=== PATIENT | female | born 1970 | race Hispanic/Latino ===

== ENCOUNTER 2016-05-09 09:09 | Emergency (ER) | payer MEDICAID ==
[2016-05-09] MEDS ORDERED: ZOFRAN IV ONE ×2 (09:44→10:48)
[2016-05-09 10:07] LABS: Basophils % (Auto) 0.4 % (0.0-1.8); Eosinophils % (Auto) 0.2 % (0.0-4.3); Hematocrit 50.4 % (30.3-42.9); Mean Corpuscular HGB Conc 34 % (30-34); Mean Corpuscular Hemoglobin 30 pg (28-32); Mean Corpuscular Volume 90 fl (79-97); Platelet Count 242 K/mm3 (140-440); Red Blood Count 5.58 M/mm3 (3.65-5.03); Red Cell Distribution Width 13.1 % (13.2-15.2); White Blood Count 9.5 K/mm3 (4.5-11.0)
[2016-05-09 10:19] LABS: Anion Gap 18 mmol/L; BUN/Creatinine Ratio 34.28; Blood Urea Nitrogen 24 mg/dL (7-17); Calcium 9.6 mg/dL (8.4-10.2); Carbon Dioxide 27 mmol/L (22-30); Chloride 98.4 mmol/L (98-107); Glucose 128 mg/dL (65-100); Potassium 3.5 mmol/L (3.6-5.0); Sodium 140 mmol/L (137-145)
[2016-05-09] MEDS ORDERED: NACL 0.9% 1000 ML 1,000 ML IV ONE (10:48)
[2016-05-09] MEDS ORDERED: MORPHINE IV ONE (10:48)
[2016-05-09 11:00] LABS: Bilirubin,Urine NEG (Negative); Blood,Urine NEG (Negative); Ketones,Urine 20 mg/dL (Negative); Leukocyte Esterase,Urine NEG (Negative); Mucus,Urine 3+ /HPF; Nitrite,Urine NEG (Negative)
--- NOTE | 2016-05-09 11:03 | Emergency Department Report ---
ED General Adult HPI - General Chief complaint: Syncope Stated complaint: SYNCOPE Time Seen by Provider: 05/09/16 10:16 Source: patient, EMS Mode of arrival: Stretcher Limitations: No Limitations - History of Present Illness Initial comments: 45-year-old female presents to the emergency department via EMS for evaluation of syncope. Patient states that she has been having nausea and vomiting for the past 3 days. She states she has not eaten anything in that time. There's been no diarrhea. She reports generalized weakness and myalgias. There has been no fever. Patient states she was vomiting this morning and stood up too quickly. She then passed out. At this time, patient is only complaining of myalgias and nausea. There are no other complaints. -: Gradual, days(s) (3) Consistency: constant Improves with: none Worsens with: none Associated Symptoms: nausea/vomiting, syncope Treatments Prior to Arrival: none - Related Data Home Medications Medication Instructions Recorded Confirmed Last Taken Citalopram 0 mg 05/09/16 3 Days Ago Previous Rx's Medication Instructions Recorded Last Taken Type HYDROcodone/APAP 5-325 [[place] 1 each PO Q6HR PRN #20 tablet 05/09/16 Unknown Rx 5/325] Metoclopramide [Reglan] 10 mg PO TID PRN #20 tab 05/09/16 Unknown Rx Allergies Allergy/AdvReac Type Severity Reaction Status Date / Time No Known Allergies Allergy Unverified 05/09/16 09:30 ED Review of Systems ROS: Stated complaint: SYNCOPE Other details as noted in HPI Comment: All other systems reviewed and negative Constitutional: weakness Cardiovascular: syncope Gastrointestinal: nausea, vomiting Musculoskeletal: myalgia ED Past Medical Hx - Past Medical History Previous Medical History?: Yes Hx Psychiatric Treatment: Yes (Anxiety) - Surgical History Past Surgical History?: Yes Hx Breast Surgery: Yes (Augmentation bilateral in 2003) - Family History Family history: no significant - Social History Smoking Status: Former Smoker Substance Use Type: None - Medications Home Medications: Home Medications Medication Instructions Recorded Confirmed Last Taken Type Citalopram 0 mg 05/09/16 3 Days Ago History HYDROcodone/APAP 5-325 [[place] 1 each PO Q6HR PRN #20 tablet 05/09/16 Unknown Rx 5/325] Metoclopramide [Reglan] 10 mg PO TID PRN #20 tab 05/09/16 Unknown Rx ED Physical Exam - General Limitations: No Limitations General appearance: alert, in no apparent distress - Head Head exam: Present: atraumatic, normocephalic - Eye Eye exam: Present: normal appearance, PERRL, EOMI - ENT ENT exam: Present: normal exam, normal orophraynx, mucous membranes moist - Neck Neck exam: Present: normal inspection, full ROM. Absent: tenderness - Respiratory Respiratory exam: Present: normal lung sounds bilaterally. Absent: respiratory distress - Cardiovascular Cardiovascular Exam: Present: regular rate, normal rhythm, normal heart sounds - GI/Abdominal GI/Abdominal exam: Present: soft, normal bowel sounds. Absent: distended, tenderness - Extremities Exam Extremities exam: Present: normal inspection, full ROM. Absent: tenderness - Back Exam Back exam: Present: normal inspection, full ROM. Absent: tenderness - Neurological Exam Neurological exam: Present: alert, oriented X3. Absent: motor sensory deficit - Skin Skin exam: Present: warm, dry, intact ED Course Vital Signs 05/09/16 05/09/16 05/09/16 09:10 09:15 09:31 Temperature 98.6 F Pulse Rate 63 53 L 77 Respiratory 25 H 14 17 Rate Blood Pressure 112/78 114/72 Blood Pressure [Right] O2 Sat by Pulse 99 100 99 Oximetry 05/09/16 05/09/16 05/09/16 09:45 10:01 10:15 Temperature Pulse Rate 74 53 L 57 L Respiratory 14 14 12 Rate Blood Pressure 110/74 127/108 118/92 Blood Pressure [Right] O2 Sat by Pulse 100 97 100 Oximetry 05/09/16 05/09/16 05/09/16 10:31 10:45 11:00 Temperature Pulse Rate 63 55 L 56 L Respiratory 12 16 15 Rate Blood Pressure 119/75 128/74 131/74 Blood Pressure [Right] O2 Sat by Pulse 100 100 100 Oximetry 05/09/16 05/09/16 05/09/16 11:09 11:15 11:30 Temperature Pulse Rate 52 L 51 L Respiratory 16 11 L 13 Rate Blood Pressure 131/74 144/80 Blood Pressure [Right] O2 Sat by Pulse 100 100 Oximetry 05/09/16 05/09/16 05/09/16 11:39 11:45 12:01 Temperature Pulse Rate 54 L 50 L Respiratory 16 24 11 L Rate Blood Pressure 144/80 137/73 Blood Pressure [Right] O2 Sat by Pulse 100 98 Oximetry 05/09/16 05/09/16 05/09/16 12:03 12:15 12:30 Temperature 98.3 F Pulse Rate 55 L 53 L 56 L Respiratory 16 13 11 L Rate Blood Pressure 137/73 126/62 Blood Pressure 122/54 [Right] O2 Sat by Pulse 99 100 100 Oximetry 05/09/16 05/09/16 05/09/16 12:45 13:00 13:15 Temperature Pulse Rate 54 L 56 L 49 L Respiratory 12 10 L 23 Rate Blood Pressure 126/62 149/79 139/74 Blood Pressure [Right] O2 Sat by Pulse 98 100 98 Oximetry 05/09/16 05/09/16 05/09/16 13:30 13:45 14:00 Temperature Pulse Rate 50 L 50 L 49 L Respiratory 18 18 20 Rate Blood Pressure 142/72 135/71 138/73 Blood Pressure [Right] O2 Sat by Pulse 98 99 98 Oximetry ED Medical Decision Making - Lab Data Result diagrams: 05/09/16 09:50 05/09/16 09:50 - EKG Data -: EKG Interpreted by Sd EKG shows normal: sinus rhythm, axis, intervals, QRS complexes, ST-T waves Rate: bradycardia - EKG Data When compared to previous EKG there are: previous EKG unavailable Interpretation: normal EKG - Medical Decision Making Lab results reviewed and discussed with the patient. Patient reports feeling better with medication. Patient will be discharged home at this time with follow-up with her primary care physician. - Differential Diagnosis vasovagal syncope, gastritis, dehydration, electrolyte abnormality Critical care attestation.: If time is entered above; I have spent that time in minutes in the direct care of this critically ill patient, excluding procedure time. ED Disposition Clinical Impression: Nausea and vomiting in adult Disposition: DISCHARGED TO HOME OR SELFCARE Is pt being admited?: No Condition: Stable Instructions: Acute Nausea and Vomiting (ED) Prescriptions: HYDROcodone/APAP 5-325 [[place] 5/325] 1 each PO Q6HR PRN #20 tablet PRN Reason: Pain Metoclopramide [Reglan] 10 mg PO TID PRN #20 tab PRN Reason: Nausea Referrals: PRIMARY CARE, [Primary Care Provider] - 3-5 Days Time of Disposition: 14:32
[2016-05-09] MEDS ORDERED: BENTYL IM ONE (12:39)
[2016-05-09] MEDS ORDERED: REGLAN IV ONE (12:39)
[2016-05-09 14:48] VITALS: BP 122/78
== END 2016-05-09 14:55 | disposition home or self-care (01) ==
LOC: ED 09:09
DX: R11.2 Nausea with vomiting, unspecified (principal); F41.9 Anxiety disorder, unspecified; Z87.891 Personal history of nicotine dependence
CPT/HCPCS: 36415; 80048; 81001; 84703; 85025; 93005; 93010; 96361; 96372; 96374; 96375; 96376; 99285; J0500; J2270; J2405; J2765

== ENCOUNTER 2017-09-05 14:13 | Emergency (ER) | payer MEDICAID, OTHER ==
[2017-09-05 14:31] VITALS: BP 128/79
[2017-09-05] MEDS ORDERED: TORADOL IM ONE (16:43)
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
== END 2017-09-05 18:45 | disposition home or self-care (01) ==
LOC: ED 14:13
DX: S39.012A Strain of muscle, fascia and tendon of lower back, initial encounter (principal); F41.9 Anxiety disorder, unspecified; F17.200 Nicotine dependence, unspecified, uncomplicated; V49.09XA Driver injured in collision with other motor vehicles in nontraffic accident, initial encounter; Y93.89 Activity, other specified; Y99.8 Other external cause status; Y92.488 Other paved roadways as the place of occurrence of the external cause
CPT/HCPCS: 72040; 72070; 72100; 96372; 99283; J1885